=== PATIENT | male | born 1960 ===

== ENCOUNTER 2020-10-27 13:18 | Outpatient (REF) | payer OTHER, MEDICAID, SELFPAY ==
[2020-10-28 11:23] LABS: HIV AB/AG Nonreactive (Nonreactive); HIV Num 1 0.06 S/CO (0.00-0.99)
[2020-10-29 04:19] LABS: HBc Num1 0.07 S/CO (0.00-0.79); Hepatitis B Core Antibody Nonreactive (Nonreactive); ~Hepatitis B Surface Antibody NONREACTIVE (Nonreactive)
[2020-10-29 04:36] LABS: ~HepC Num1 0.08 S/CO (0.00-0.79); ~Hepatitis C Antibody Nonreactive (Nonreactive)
== END 2020-10-27 13:19 | disposition home or self-care (01) ==
LOC: HO.LNP 13:18
PROVIDERS: Visit Provider Ophthalmology Glaucoma Specialist
DX: Z01.84 Encounter for antibody response examination (principal); Z11.4 Encounter for screening for human immunodeficiency virus [HIV]; Z11.59 Encounter for screening for other viral diseases; H26.9 Unspecified cataract
CPT/HCPCS: 86704; 86706; 86803; 87389